=== PATIENT | female | born 2000 | race Caucasian/White ===

== ENCOUNTER 2023-06-13 21:24 | Emergency (ER) | payer SELFPAY ==
[~2023-06-13] VITALS: Ht 160 cm; Wt 75.0 kg
[2023-06-13 21:44] VITALS: O2SAT 100
[2023-06-13] MEDS: TETANUS, DIPHTHERIA, PERTUSSIS VAC/PF 0.5ML (>10YR OLD) IM ONE (22:35)
[2023-06-14] MEDS ORDERED: BO1 TP (00:14)
[2023-06-14] MEDS: BACITRACIN ZINC OINT UDPKT TOP ONE (00:20)
[2023-06-14] MEDS: LIDOCAINE HCL/PF 1% 10 MG/ML 5ML VIAL INFIL ONE (00:21)
[2023-06-14 00:25] VITALS: BP 133/90; PULSE 90; RESP 18; TEMP 98
== END 2023-06-14 00:25 | disposition home or self-care (01) ==
LOC: ER 21:24
DX: S61.011A Laceration without foreign body of right thumb without damage to nail, initial encounter (principal); F41.9 Anxiety disorder, unspecified; J45.909 Unspecified asthma, uncomplicated
CPT/HCPCS: 73140; 90715; 12002; 90471; 99283; J3490; Z7610